=== PATIENT | male | born 1975 | race Two or more races ===

== ENCOUNTER 2022-07-01 18:19 | Emergency (ER) | payer OTHER ==
[~2022-07-01] VITALS: Ht 167.6 cm; Wt 106.1 kg
[~2022-07-01 18:19] MED LIST: DICLOFENAC SODI75 MG PO
[2022-07-01] MEDS ORDERED: IBUPROFEN 800 MG (18:53)
[2022-07-01] MEDS ORDERED: IBUPROFEN800 MG PO (21:50)
== END 2022-07-01 22:00 | disposition home or self-care (01) ==
LOC: ER 18:19
DX: M25.461 Effusion, right knee (principal); M25.462 Effusion, left knee; G47.30 Sleep apnea, unspecified

== ENCOUNTER 2022-07-03 12:09 | Emergency (ER) | payer OTHER ==
[~2022-07-03] VITALS: Ht 167.6 cm; Wt 106.1 kg
[~2022-07-03 12:09] MED LIST changes: +IBUPROFEN 800 MG; +IBUPROFEN800 MG PO
== END 2022-07-03 19:32 | disposition home or self-care (01) ==
LOC: ER 12:09
DX: S83.206A Unspecified tear of unspecified meniscus, current injury, right knee, initial encounter (principal); M25.561 Pain in right knee; M25.562 Pain in left knee; X58.XXXA Exposure to other specified factors, initial encounter; Y93.9 Activity, unspecified; Y92.9 Unspecified place or not applicable; Y99.9 Unspecified external cause status
CPT/HCPCS: 73718